=== PATIENT | female | born 1965 | race Two or more races ===

== ENCOUNTER 2017-02-06 18:21 | Emergency (ER) | payer BC, OTHER ==
[~2017-02-06] VITALS: Ht 157.5 cm; Wt 90.0 kg
[2017-02-06 18:38] VITALS: Ht 157.5 cm; Wt 90.0 kg
[2017-02-06] MEDS ORDERED: RANITIDINE 150 MG TAB PO ONE (20:00)
[2017-02-06] MEDS ORDERED: HYDROCODONE/APAP (5/325) TAB PO ONE (20:00)
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
[2017-02-06] MEDS ORDERED: HYDR-906 PO (22:34)
[2017-02-06 22:50] VITALS: BP 125/70; PULSE 85; RESP 20; TEMP 98.3
== END 2017-02-06 22:51 | disposition home or self-care (01) ==
LOC: FTE 18:21
DX: S20.211A Contusion of right front wall of thorax, initial encounter (principal); V49.40XA Driver injured in collision with unspecified motor vehicles in traffic accident, initial encounter
CPT/HCPCS: 71010; 93005; Z7502; Z7610